=== PATIENT | male | born 2000 | race American Indian/Alaskan Native ===

== ENCOUNTER 2021-07-28 21:40 | Emergency (ER) | payer MEDICAID ==
[2021-07-28] MEDS ORDERED: LORazepam 2 MG/ML VIAL ONE (22:44)
[2021-07-28] MEDS ORDERED: LACOSAMIDE 100 MG TAB PO NR (23:00)
--- NOTE | 2021-07-28 23:18 | Emergency Department Report ---
ED Seizure HPI - General Chief Complaint: Seizure Stated Complaint: SEIZURE Time Seen by Provider: 07/28/21 22:46 Source: patient Mode of arrival: Ambulatory Limitations: No Limitations - History of Present Illness Initial Comments: Per mother, patient is a 20-year-old -Monegas[place] male with a history of chronic seizure who presents to the ED for refill of his seizure medications after he ran out of his fifth seizure medicine 24 hours ago. Mother states the patient takes Keppra and Vimpat for seizures and that the patient ran out of his Vimpat medications 24 hours ago. Mother states that there have been trying to contact the patient's primary care physician in order for him to renew the patient's seizure medications with no success. Mother states that the patient had a witnessed seizure episode 1 hour prior to arrival in the ED. Mother states that the patient only took Keppra, last time of which was about 2 to 3 hours prior to arrival in the ED. Mother states the patient has not had any head or neck injuries, dizziness, syncope, chest pain or shortness of breath, nausea and vomiting, fever, chills, headache, loss of consciousness, numbness and tingling or weakness of upper and lower extremities bilaterally. MD Complaint: seizure, other (Chronic seizure history, torin out of his medications) -: Sudden, hour(s) (4), This evening Description of Episode: post-event confusion Duration of Episode: 30 -: second(s) Witnessed:: Yes Trauma: No Seizure History: known seizure disorder, other (Ran out of his medications) Place: home Possible Precipitating Event: none Associated Symptoms: denies: denies other symptoms, chest pain, confusion, cough, diaphoresis, fever/chills, loss of appetite, malaise, rash, shortness of breath, syncope, weakness, tongue injury Treatments Prior to Arrival: other (Keppra) - Related Data Previous Rx's Medication Instructions Recorded Last Taken Type Lacosamide [Vimpat] 200 mg PO Q12H #60 tablet 07/28/21 Unknown Rx Allergies Allergy/AdvReac Type Severity Reaction Status Date / Time No Known Allergies Allergy Verified 07/28/21 22:58 ED Review of Systems ROS: Stated complaint: SEIZURE Other details as noted in HPI Constitutional: denies: chills, fever Eyes: denies: eye pain, eye discharge, vision change ENT: denies: ear pain, throat pain Respiratory: denies: cough, shortness of breath, wheezing Cardiovascular: denies: chest pain, palpitations Endocrine: no symptoms reported Gastrointestinal: denies: abdominal pain, nausea, vomiting, diarrhea Genitourinary: denies: urgency, dysuria Musculoskeletal: denies: back pain, joint swelling, arthralgia Skin: denies: rash, lesions Neurological: other (chronic seizure disorder). denies: headache, weakness, paresthesias Psychiatric: denies: anxiety, depression Hematological/Lymphatic: denies: easy bleeding, easy bruising ED Past Medical Hx - Past Medical History Previous Medical History?: Yes Hx Seizures: Yes - Surgical History Past Surgical History?: No - Social History Smoking Status: Never Smoker Substance Use Type: None - Medications Home Medications: Home Medications Medication Instructions Recorded Confirmed Last Taken Type Lacosamide [Vimpat] 200 mg PO Q12H #60 tablet 07/28/21 Unknown Rx ED Physical Exam - General Limitations: No Limitations General appearance: alert, in no apparent distress - Head Head exam: Present: atraumatic, normocephalic, normal inspection - Eye Eye exam: Present: normal appearance, PERRL, EOMI Pupils: Present: normal accommodation - ENT ENT exam: Present: normal exam, normal orophraynx, mucous membranes moist, TM's normal bilaterally, normal external ear exam - Neck Neck exam: Present: normal inspection, full ROM - Respiratory Respiratory exam: Present: normal lung sounds bilaterally. Absent: respiratory distress, wheezes, rales, rhonchi, chest wall tenderness, accessory muscle use, decreased breath sounds, prolonged expiratory - Cardiovascular Cardiovascular Exam: Present: regular rate, normal rhythm, normal heart sounds. Absent: systolic murmur, diastolic murmur, rubs, gallop - GI/Abdominal GI/Abdominal exam: Present: soft, normal bowel sounds. Absent: tenderness, guarding, hyperactive bowel sounds, organomegaly - Extremities Exam Extremities exam: Present: normal inspection, full ROM, normal capillary refill - Back Exam Back exam: Present: normal inspection, full ROM. Absent: tenderness, CVA tenderness (R), CVA tenderness (L), muscle spasm, paraspinal tenderness, vertebral tenderness - Neurological Exam Neurological exam: Present: alert, oriented X3, CN II-XII intact, normal gait, reflexes normal - Psychiatric Psychiatric exam: Present: normal affect, normal mood - Skin Skin exam: Present: warm, dry, intact, normal color. Absent: rash ED Course Vital Signs 07/28/21 22:21 Temperature 98.3 F Pulse Rate 64 Respiratory 16 Rate Blood Pressure 125/55 [Left] O2 Sat by Pulse 100 Oximetry ED Medical Decision Making - Medical Decision Making This is a 20-year-old -[place] male with a history of chronic seizure who presents to the ED for refill of his seizure medications after he ran out of his fifth seizure medicine 24 hours ago. Mother states the patient takes Keppra and Vimpat for seizures and that the patient ran out of his Vimpat med ications 24 hours ago. Mother states that there have been trying to contact the patient's primary care physician in order for him to renew the patient's seizure medications with no success. Mother states that the patient had a witnessed seizure episode 1 hour prior to arrival in the ED. Mother states that the patient only took Keppra, last time of which was about 2 to 3 hours prior to arrival in the ED. in the ED, patient is alert and oriented x3 and is not in any distress. Patient is hemodynamically stable. Patient was postictal on physical exam in the ED and was treated in the ED with Ativan 1 mg intramuscular injection and also given Vimpat 200 mg p.o. x1. Patient was therefore discharged home on the prescription of Vimpat medication for seizure and mother was advised of the patient follow-up with the primary care physician in 3 to 5 days for reevaluation or have the patient return to the ED immediately for further evaluation if his symptoms get worse. - Differential Diagnosis Seizure disorder; medication refill; Critical care attestation.: If time is entered above; I have spent that time in minutes in the direct care of this critically ill patient, excluding procedure time. ED Disposition Clinical Impression: Seizure disorder, Medication refill Disposition: HOME / SELF CARE / HOMELESS Is pt being admited?: No Does the pt Need Aspirin: No Condition: Stable Instructions: Seizure, Adult, [id number] Additional Instructions: Take your regular medications, drink plenty of fluids and follow-up with your primary care physician in 3 to 5 days for reevaluation. Return to the ED immediately if symptoms get worse. Prescriptions: Lacosamide [Vimpat] 200 mg PO Q12H #60 tablet Referrals: DUSTY REZA MD [Staff Physician] - 3-5 Days Time of Disposition: 23:20 Print Language: BULGARIAN
[2021-07-28 23:42] VITALS: BP 124/74
== END 2021-07-28 23:43 | disposition home or self-care (01) ==
LOC: ED 21:40
DX: G40.909 Epilepsy, unspecified, not intractable, without status epilepticus (principal); Z76.0 Encounter for issue of repeat prescription
CPT/HCPCS: 99282; J2060